=== PATIENT | male | born 1955 | race Caucasian/White ===

== ENCOUNTER → 2017-05-28 | Outpatient (CLI) | payer BC ==
[~2017-05-28] MED LIST: ASPCH81X PO; DOXY100C76 PO; EPP3/2 IM; FLUT50SP45 NAE
== END | disposition home or self-care (01) ==
LOC: C.CPL 12:10
PROVIDERS: ATTEND Physician Assistant
DX: Z01.810 Encounter for preprocedural cardiovascular examination (principal); M67.432 Ganglion, left wrist

== ENCOUNTER → 2017-05-28 | Outpatient (CLI) | payer BC ==
--- NOTE | 2017-05-28 11:01 | DIAGNOSTIC IMAGING REPORT ---
L WRIST MIN 3 VIEWS ROUTINE CLINICAL HISTORY: GANGLION CYST LEFT WRIST nodule COMPARISON: None. DISCUSSION: Mild degenerative changes of the articular services throughout the radiocarpal as well as intercarpal joints. No lytic or blastic process. No abnormal soft tissue calcifications. There is no evidence for soft tissue swelling. IMPRESSION: Mild degenerative change. No acute process. The above report was generated using voice recognition software. It may contain grammatical, syntax or spelling errors. Electronically signed by: Timbo Hudson M.D. 05/28/2017 11:00 AM Dictated Date/Time: 05/28/2017 11:00 AM
== END | disposition home or self-care (01) ==
LOC: C.RDSM 14:02
PROVIDERS: ATTEND Physician Assistant
DX: M67.432 Ganglion, left wrist (principal)

== ENCOUNTER → 2017-06-19 | Day surgery (SDC) | payer BC ==
[2017-05-31 07:47] VITALS: Ht 182.9 cm; Wt 113.6 kg
[~2017-06-19] VITALS: Ht 182.9 cm; Wt 113.6 kg
[~2017-06-19] MED LIST changes: +ATROPINE SULFATE 0.1 MG/ML 5ML SYR IV PRN; +CEFAZOLIN 2000MG IV PUSH 10 ML IV SCH; +DEXAMETHASONE SOD INJ 4 MG/ML VIAL ONE; +EpHEDrine SULFATE INJ 50 MG/ML AMP IV PRN; +FENTANYL CITRATE INJ 50 MCG/1 ML 2 ML VIAL IV PRN; +FENTANYL CITRATE INJ 50 MCG/1 ML 2 ML VIAL ONE; +HYDROmorphone INJ 1 MG/ML SYR IV PRN; +LACTATED RINGER'S 1000ML 1,000 ML IV SCH; +LIDOCAINE HCL 2% 2 ML VIAL (20MG/ML) ONE; +MIDAZOLAM HCL 1 MG/ML 2ML VIAL ONE; +ONDANSETRON INJ 2 MG/ML 2 ML VIAL IV PRN; +ONDANSETRON INJ 2 MG/ML 2 ML VIAL ONE; +PROPOFOL IV EMULSION 10 MG/ML 20 ML VIAL IV ONE
--- NOTE | 2017-06-19 06:55 | History & Physical Bridge Note ---
H&P Re-Evaluation Bridge Note: I have examined the patient, reviewed the History & Physical and in the interval since the performance of the History & Physical I have noted the following changes of clinical significance:consent obtained. No changes noted
--- NOTE | 2017-06-19 06:56 | Discharge Instructions ---
Discharge Instructions Date of Service Jun 19, 2017. Visit Reason for Visit: Left Wrist Ganglion Cyst Discharge Discharge Diagnosis / Problem: same Discharge Goals Goal(s): Decrease discomfort, Improve function, Increase independence Medications Stopped Medications Name(s): na Restart Stopped Medication(s): resume all meds as scripts direct Activity Recommendations Activity Limitations: as noted below Lifting Limitations: until after follow-up appointment Exercise/Sports Limitations: until after follow-up appointment May Resume Sexual Activity: when tolerated Shower/Bathe: keep incision dry Driving or Machine Use: resume 1 day after discharge Anesthesia . Post Anesthesia Instructions: If you have had General Anesthesia or IV Sedation: * Do not drive today. * Resume driving when surgeon permits. * Do not make important decisions or sign legal documents today. * Call surgeon for: 1. Temperature elevations greater than 101 degrees F. 2. Uncontrollable pain. 3. Excessive bleeding. 4. Persistent nausea and vomiting. 5. Medication intolerance (nausea, vomiting or rash). * For nausea and vomiting use only clear liquids such as: tea, soda, bouillon until nausea subsides, then gradually increase diet as tolerated. * If you have any concerns or questions, call your surgeon's office. If physician is unavailable and it is an emergency, call 911 or go to the nearest emergency room. . Instructions / Follow-Up Instructions / Follow-Up DIET: * Resume previous diet. MEDICATIONS: * Please take your prescriptions as instructed at your pre-op appointment and/ or see medication discharge instructions listed above. * If concerns develop, call your physician's office at . SPECIAL CARE INSTRUCTIONS: * Ice/Elevate as instructed. * Keep dressing clean, dry, intact. * Your surgical extremity may be discolored due to prepping agents used on the skin. A bluish-green tint is a normal variant and should not cause alarm. Call your doctor at [phone] if: * Temperature above 101 degrees * Pain not relieved by pain medicine ordered * There is increased drainage or redness from any incision * You have any unanswered questions, problems or concerns. FOLLOW UP VISIT: * If not already scheduled, please call the office at to schedule a follow-up appointment. Diet Recommendations Recommended Home Diet: resume previous diet Procedures Procedures Performed: see op note Pending Studies Studies pending at discharge: yes List of pending studies: ganglion biopsy Medical Emergencies . Who to Call and When: Medical Emergencies: If at any time you feel your situation is an emergency, please call 911 immediately. . Non-Emergent Contact Non-Emergency issues call your: Specialist Call Non-Emergent contact if: temperature is above 101.5, wound has increased drainage, wound has increased redness, wound has increased pain . . "Provider Documentation" section prepared by Nic De La Fuente. .
--- NOTE | 2017-06-19 09:00 | [facility] Post Operative Brief Note ---
Immediate Operative Summary Operative Date Jun 19, 2017. Pre-Operative Diagnosis Left Wrist Ganglion Cyst Post-Operative Diagnosis Same Procedure(s) Performed Left Wrist Volar Carpal Ganglion Cyst Open Excision and Release of FCR Fibro Osseous Tunnel Surgeon Dr. De La Fuente Computer Publisher Surgeon(s) Dr. Nafisa Armas, Fellow Estimated Blood Loss Trace Findings ganglion/FCR tenosynovitis Fluids (cc crystalloids) 600cc Specimens A. Left Wrist Ganglion Cyst Drains none Anesthesia LMA Complication(s) None Disposition Recovery Room / PACU
--- NOTE | 2017-06-19 09:17 | OPERATIVE REPORT ---
DATE OF OPERATION: 06/19/2017 PREOPERATIVE DIAGNOSIS: Left volar carpal ganglion. POSTOPERATIVE DIAGNOSIS: Left volar carpal ganglion with FCR tenosynovitis and fibro-osseous tunnel friction. OPERATION PERFORMED: 1. Excision ganglion cyst. 2. Open decompression of fibro-osseous tunnel FCR. SURGEON: Dr. De La Fuente. REPEATER CHIEF: Maulik Armas, fellow. PERIOPERATIVE SITUATION: Medically cleared male with intractable wrist pain has significant pain with resisted wrist flexion, has tenderness over the carpal ganglion. At this point in time wants to proceed with surgical excision. He was advised that this has a high incidence of recurrence and sharla-incisional numbness. OPERATION AND FINDINGS: OPERATION: The patient appropriately identified, site verified, consent verified, 2 grams of Ancef confirmed as being given. The left upper extremity was prepped and draped in usual routine fashion. The arm was then exsanguinated with rubber Esmarch bandage and the tourniquet inflated to 250 mmHg for a total of 22 minutes. A distal incision was made over the ganglion and extended over the thenar crease in an oblique fashion. Full thickness flaps raised. Care taken to protect the nerves. The ganglion was then identified and it was elliptically dissected clean and stalk identified going into the FCR fibro-osseous tunnel. The area was then ligated and mass removed. The fibro-osseous tunnel was then opened, the FCR definitely had some tenosynovitis and had a longitudinal split. The fibro-osseous tunnel was then decompressed and a small piece of bone removed over the lip of the trapezium. This decompressed everything nicely. The wound was then irrigated, tourniquet deflated. Minor bleeding points controlled with the electrocautery. The wound irrigated and closed with horizontal 3-0 nylon mattress sutures. The wound dressed appropriately and splinted with a 3" splint. The patient was then transferred to recovery room in satisfactory condition having tolerated the procedure well. Estimated blood loss was trace. Crystalloid was about 600 mL. He did have foot pumps on during the procedure. That was used as DVT prophylaxis. Permanent pathology pending of the ganglion cyst. Estimated blood loss again was trace. I attest to the content of the Intraoperative Record and any orders documented therein. Any exception s are noted below.
[2017-06-19 10:08] VITALS: BP 148/91; PULSE 68; O2SAT 96
--- NOTE | 2017-06-19 10:16 | Anesthesia Progress Nt - [facility] ---
Anesthesia Post Op Note Date & Time Jun 19, 2017 at 10:16 Vital Signs Pain Intensity: 2 Vital Signs Past 12 Hours Date Time Temp Pulse Resp B/P (MAP) Pulse Ox O2 Delivery O2 Flow Rate FiO2 06/19/17 10:08 68 16 148/91 (110) 96 Room Air 06/19/17 09:43 36.4 68 16 158/87 (110) 99 Room Air 06/19/17 09:34 148/96 06/19/17 09:31 70 14 94 06/19/17 09:31 71 14 06/19/17 09:30 154/99 06/19/17 09:29 36.9 70 16 154/99 94 Room Air 06/19/17 09:26 68 18 145/109 95 06/19/17 09:26 69 18 06/19/17 09:21 67 16 06/19/17 09:21 67 16 100 06/19/17 09:20 152/98 06/19/17 09:16 71 23 06/19/17 09:16 71 23 99 06/19/17 09:15 152/95 06/19/17 09:14 73 16 06/19/17 09:14 78 16 99 06/19/17 09:11 152/105 06/19/17 09:09 75 16 99 06/19/17 09:09 76 16 06/19/17 09:06 156/103 06/19/17 09:04 76 18 06/19/17 09:04 37.0 80 16 157/96 99 Diffusion Mask 6 06/19/17 09:04 77 18 157/96 98 06/19/17 06:55 36.6 69 20 135/80 (98) 94 Room Air Notes Mental Status: alert / awake / arousable, participated in evaluation Pt Amnestic to Procedure: Yes Nausea / Vomiting: adequately controlled Pain: adequately controlled Airway Patency, RR, SpO2: stable & adequate BP & HR: stable & adequate Hydration State: stable & adequate Anesthetic Complications: no major complications apparent
== END | disposition home or self-care (01) ==
LOC: X.SURG 06:43
PROVIDERS: ATTEND Physical Medicine & Rehabilitation Sports Medicine
DX: M67.432 Ganglion, left wrist (principal); M65.832 Other synovitis and tenosynovitis, left forearm; J45.909 Unspecified asthma, uncomplicated; Z79.82 Long term (current) use of aspirin; Z79.899 Other long term (current) drug therapy; K21.9 Gastro-esophageal reflux disease without esophagitis; G62.9 Polyneuropathy, unspecified; M19.90 Unspecified osteoarthritis, unspecified site; E66.9 Obesity, unspecified; Z68.34 Body mass index [BMI] 34.0-34.9, adult